=== PATIENT | male | born 1980 | race Caucasian/White ===

== ENCOUNTER 2016-07-04 15:52 | Emergency (ER) | payer OTHER ==
[2016-07-04 16:02] VITALS: TEMP 98.2
--- NOTE | 2016-07-04 16:11 | EDPHY ---
HPI/HX/ROS/PE/MDM Narrative: CHIEF COMPLAINT: Psychiatric evaluation HPI: This is a 36-year-old male no significant past medical history. He was brought to the emergency department by his friend because the patient has been abusing alcohol in feeling very "sad." The patient does not currently endorse suicidal ideation. He is currently from his . He denies other drug use. His friend states that he is worried about him and that the patient has no place to stay tonight. The patient is actively intoxicated. REVIEW OF SYSTEMS: Aside from elements discussed in the HPI, a comprehensive 10-point review of systems was reviewed and is negative. PMH: None significant. SOCIAL HISTORY: In process of divorce. Admits to active alcohol abuse. PHYSICAL EXAM: General:Patient is alert, in no acute distress. ENT:Eyes are normal to inspection. ENT inspection normal. Neck: Normal inspection. Full range of motion. Respiratory:No respiratory distress. Breath sounds normal bilaterally. Cardiovascular: Regular rate and rhythm. Strong peripheral pulses. Normal cap refill. Abdomen:The abdomen is nontender to palpation. There are no peritoneal signs. There are normal bowel sounds. Back: Normal to inspection. No tenderness to palpation. Skin: Normal color. No rash. Warm and dry. Extremities: Normal appearance. Full range of motion. Neuro: Oriented x3. Normal motor function. Normal sensory function. Psychiatric: Sad affect. Denies suicidal ideation. (Kan Romero) ED Course: This patient presents with signs and symptoms of severe depression. He is not currently endorsing suicidality. He is however, quite intoxicated, and will need to fully sober before he can be evaluated by Mental Health. I do not think patient meets criteria for an M1 hold at this time. I have signed the patient out to Dr. Fuentes at 11pm. (Kan Romero) 2300 Pt s/o to me pending sobriety and mental health evaluation. 0500 patient is awake and alert. He is clinically sober. Patient states that he was little depressed upset after hearing that his filed for divorce. Patient states that he started drinking because he was upset about this. He denies any thoughts of suicide. He also denies any thoughts of harming others including his for his children. Patient states that he is seeing a counselor right now and has an appointment tonight at 5 o'clock. Denies any other ingestions. Does not have access to any firearms. His friend has his only weapon locked away. He is absolutely kev for safety with me. States he will follow up with his counselor today as scheduled. If he has any other worsening depression he will contact his counselor, call [facility] crisis number or return immediately to the emergency department. There is no criteria which to put him on a hold at this time. He is clinically sober. Will discharge with resources for outpatient follow-up. (Willard Fuentes ) - Data Points Laboratory Results: Laboratory Results 07/04/16 16:40 07/04/16 16:40 07/04/16 16:40 Sodium 146 mEq/L H mEq/L (134-144) Potassium 4.0 mEq/L mEq/L (3.5-5.2) Chloride 107 mEq/L mEq/L (97-110) Carbon Dioxide 23 mEq/l mEq/l (22-31) Anion Gap 16 mEq/L mEq/L (8-16) BUN 13 mg/dL mg/dL (7-23) Creatinine 1.0 mg/dL mg/dL (0.7-1.3) Estimated GFR > 60 Glucose 89 mg/dL mg/dL (70-100) Calcium 9.3 mg/dL mg/dL (8.5-10.4) Total Bilirubin 1.2 mg/dL mg/dL (0.1-1.4) Conjugated Bilirubin 0.3 mg/dL mg/dL (0.0-0.5) Unconjugated Bilirubin 0.9 mg/dL mg/dL (0.0-1.1) AST 68 IU/L H IU/L (17-59) ALT 41 IU/L IU/L (21-72) Alkaline Phosphatase 62 IU/L IU/L (38-126) Total Protein 7.5 g/dL g/dL (6.3-8.2) Albumin 4.9 g/dL g/dL (3.5-5.0) Medications Given: Discontinued Medications Nicotine Polacrilex (Nicorette) 2 mg B EDNOW ONE Stop: 07/04/16 23:25 Last Admin: 07/04/16 23:35 Dose: 2 mg General Time Seen by Provider: 07/04/16 16:09 Initial Vital Signs: Initial Vital Signs Temperature (C) 36.8 C 07/04/16 16:00 Heart Rate 98 07/04/16 16:00 Respiratory Rate 18 07/04/16 16:00 Blood Pressure 136/106 H 07/04/16 16:00 O2 Sat (%) 94 07/04/16 16:00 O2 Delivery Mode Room Air Allergies/Adverse Reactions: No Known Allergies Allergy (Unverified 07/04/16 15:59) Home Medications: Medication Instructions Recorded Wellbutrin 100mg (*) 07/04/16 Departure - Departure Disposition: Home, Routine, Self-Care Clinical Impression: Severe major depression, Alcohol intoxication Condition: Good Instructions: Depression (ED) Additional Instructions: Follow up with your psychologist today as scheduled. If you have thoughts of depression or suicide or thoughts of harming others immediately call the [facility] hotline. If you're feeling unsafe present to the emergency department for further evaluation. Referrals: NONE *PRIMARY CARE P,. [Primary Care Provider] - As per Instructions [facility] [Outside] - As per Instructions Report Scribed for: Kan Romero Report Scribed by: Nasrin Khan Date of Report: 07/04/16 Time of Report: 16:10 Physician Review and Approval Statement: Portions of this note were transcribed by an ED scribe. I personally performed the history, physical exam, and medical decision making; and confirm the accuracy of the information in the transcribed note.
[2016-07-04 16:57] LABS: % IMMATURE GRANULYOCYTES 0.1 % (0.0-1.1); ABSOLUTE IMMATURE GRANULOCYTES 0.01 10^3/uL (0.00-0.10); ADD DIFF? NO; ADD MORPH? NO; ADD SCAN? NO; ATYPICAL LYMPHOCYTE FLAG 10 (0-99); FRAGMENT RBC FLAG 0 (0-99); HEMATOCRIT 46.9 % (40.0-51.0); HEMOGLOBIN 16.4 g/dL (13.7-17.5); LEFT SHIFT FLG 0 (0-99); LIPEMIA HEMOLYSIS FLAG 90 (0-99); MEAN CELL HEMOGLOBIN 31.3 pg (27.9-34.1); MEAN CELL VOLUME 89.5 fL (81.5-99.8); MEAN PLATELET VOLUME 9.2 fL (8.7-11.7); PLATELET CLUMPS FLAG 0 (0-99); PLATELET COUNT 304 10^3/uL (150-400); RED BLOOD CELL COUNT 5.24 10^6/uL (4.40-6.38); RED CELL DISTRIBUTION WIDTH 13.5 % (11.5-15.2)
[2016-07-04 17:13] LABS: ALANINE AMINOTRANSFERASE 41 IU/L (21-72); ALBUMIN 4.9 g/dL (3.5-5.0); ALKALINE PHOSPHATASE 62 IU/L (38-126); ANION GAP 16 mEq/L (8-16); ASPARTATE AMINOTRANSFERASE 68 IU/L (17-59); BILIRUBIN,TOTAL 1.2 mg/dL (0.1-1.4); BILIRUBIN-CONJUGATED 0.3 mg/dL (0.0-0.5); BILIRUBIN-UNCONJUGATED 0.9 mg/dL (0.0-1.1); CALCIUM 9.3 mg/dL (8.5-10.4); CARBON DIOXIDE 23 mEq/l (22-31); CHLORIDE 107 mEq/L (97-110); GLOMERULAR FILTRATION RATE > 60; GLUCOSE 89 mg/dL (70-100); SODIUM 146 mEq/L (134-144); TOTAL PROTEIN 7.5 g/dL (6.3-8.2)
[2016-07-04] MEDS ORDERED: NICOTINE POLACRILEX 2 MG GUM B ONE (23:24)
[2016-07-05 02:15] VITALS: RESP 16
[2016-07-05 05:28] VITALS: BP 146/81; PULSE 88; O2SAT 94
== END 2016-07-05 05:29 | disposition home or self-care (01) ==
DX: F10.129 Alcohol abuse with intoxication, unspecified (principal); F32.2 Major depressive disorder, single episode, severe without psychotic features
CPT/HCPCS: 80305